=== PATIENT | male | born 1965 | race Two or more races ===

== ENCOUNTER 2022-05-07 07:17 | Day surgery (SDC) | payer MEDICAID ==
[~2022-05-07] VITALS: Ht 180.3 cm; Wt 122.5 kg
[2022-05-07] MEDS ORDERED: FUROSEMIDE 20 MG/2 ML VIAL IV ONE (07:18)
[2022-05-07] MEDS ORDERED: CIPROFLOXACIN 400MG/200ML 200 ML IV ONE (09:32)
[2022-05-07] MEDS ORDERED: fentaNYL CITRATE 100 MCG/2 ML VL ONE (10:01)
[2022-05-07] MEDS ORDERED: MIDAZOLAM HCL 2MG/2ML 2ml VIAL (1mg/ml) ONE (10:02)
[2022-05-07] MEDS ORDERED: DexAMETHasone SOD PHOS 10MG/1ML VIAL INJ ONE (10:10)
[2022-05-07] MEDS ORDERED: HYDROmorphone HCL 2 MG/ML VL/or syr IV PRN (10:15)
[2022-05-07] MEDS ORDERED: LABETALOL HCL 5 MG/ML 4ML SYRINGE IV PRN (10:15)
[2022-05-07] MEDS ORDERED: ONDANSETRON HCL 4 MG/2 ML VIAL IV PRN (10:15)
[2022-05-07] MEDS ORDERED: MIDAZOLAM HCL 2MG/2ML 2ml VIAL (1mg/ml) IV PRN (10:15)
[2022-05-07] MEDS ORDERED: METOCLOPRAMIDE HCL 5MG/ml INJ 2ml VIAL IV PRN (10:15)
[2022-05-07] MEDS ORDERED: MORPHINE SULFATE 4 MG/ML SYR/VIAL IV PRN (10:15)
[2022-05-07] MEDS ORDERED: ePHEDrine SULFATE 50 MG/ML AMP IV PRN (10:15)
[2022-05-07] MEDS ORDERED: PROPOFOL 10 MG/ML 20 ML IV ONE (10:26)
[2022-05-07 11:41] VITALS: BP 140/77
== END 2022-05-07 11:58 | disposition home or self-care (01) ==
LOC: SUR 07:17
PROVIDERS: ATTEND Urology
DX: N20.1 Calculus of ureter (principal); F41.9 Anxiety disorder, unspecified; K21.9 Gastro-esophageal reflux disease without esophagitis; Z88.0 Allergy status to penicillin; Z20.822 Contact with and (suspected) exposure to COVID-19
CPT/HCPCS: 50590; J0744; J1100; J1940; J2250; J2704; J3010; U0003